=== PATIENT | female | born 1995 | race Caucasian/White ===

== ENCOUNTER 2017-07-07 00:58 | Emergency (ER) | payer OTHER ==
[2017-07-07 01:05] VITALS: BP 142/81
[2017-07-07 01:31] LABS: BILIRUBIN,URINE NEGATIVE (NEGATIVE); GLUCOSE, URINE (UA) NEGATIVE (NEGATIVE); KETONES,URINE (UA) NEGATIVE (NEGATIVE); LEUKOCYTE ESTERASE, URINE NEGATIVE (NEGATIVE); NITRITE,URINE NEGATIVE (NEGATIVE); OCCULT BLOOD,URINE NEGATIVE (NEGATIVE); PROTEIN,URINE NEGATIVE (NEGATIVE); UROBILINOGEN,URINE 0.2 (NORMAL) E.U./dL (NORMAL)
[2017-07-07 01:32] LABS: CLARITY,URINE CLEAR (CLEAR); HCG UR QUAL NEGATIVE
[2017-07-07] MEDS ORDERED: KETOROLAC 60 MG/2 ML VIAL IM STA (01:46)
[2017-07-07] MEDS ORDERED: CYCLOBENZAPRINE 10 MG TABLET PO STA (01:46)
[2017-07-07] MEDS ORDERED: DEXAMETHASONE 10 MG/ML VIAL PO STA (01:46)
[2017-07-07] MEDS ORDERED: CHERRY SYRUP 10 ML UDC PO ONE (01:58)
--- NOTE | 2017-07-07 02:04 | ED Physician Documentation ---
PD HPI BACK INJURY - Stated complaint Stated Complaint: BACK PAIN - History obtained from History obtained from: Patient, Friend - History of Present Illness Location: Both, Upper, Lower Type of injury: Other (lifting) Where injury occurred: Work Timing - onset: Today Timing - details: Abrupt onset, Still present Quality: Pain, Spasm, Sharp Worsened by: Moving, Palpating Associated symptoms: No: Weakness, Numbness, Incontinent of urine, Unable to urinate Similar symptoms before: No diagnosis Recently seen: Not recently seen - Additional information Additional information: Patient is a 22 year old female with no significant past medical history who is presenting to the emergency department for back pain. Patient states that she was helping carry a 300lb bomb when she developed a sharp pain in her back. ptient states that she has had back spasm similar to this in the past. Review of Systems Constitutional: denies: Fever, Chills Eyes: reports: Reviewed and negative Ears: reports: Reviewed and negative Nose: reports: Reviewed and negative Throat: reports: Reviewed and negative Cardiac: denies: Chest pain / pressure Respiratory: denies: Cough, Wheezing GI: denies: Nausea, Vomiting : denies: Hesitancy, Unable to Void, Incontinent Skin: denies: Lesions, Abrasion (s), Laceration (s) Musculoskeletal: reports: Back pain Neurologic: denies: Generalized weakness, Focal weakness, Numbness Immunocompromised: denies: Immunocompromised PD PAST MEDICAL HISTORY - Past Medical History Past Medical History: Yes Cardiovascular: None Respiratory: None Neuro: None Endocrine/Autoimmune: None GI: None 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 : None HEENT: None Psych: None Musculoskeletal: Chronic back pain Derm: None - Past Surgical History Past Surgical History: Yes Ortho: Other - Present Medications Home Medications: Ambulatory Orders Medication Instructions Recorded Confirmed Cyclobenzaprine [Flexeril] 10 mg PO TID PRN #10 tablet 07/07/17 - Allergies Allergies/Adverse Reactions: Allergies Allergy/AdvReac Type Severity Reaction Status Date / Time No Known Drug Allergies Allergy Verified 07/07/17 01:02 - Social History Does the pt smoke?: Yes Smoking Status: Current every day smoker Does the pt drink ETOH?: Yes Does the pt have substance abuse?: No - Immunizations Immunizations are current?: Yes - POLST Patient has POLST: No PD ED PE NORMAL - Vitals Vital signs reviewed: Yes - General General: Alert and oriented X 3, No acute distress - HEENT HEENT: Atraumatic, PERRL - Neck Neck: Supple, no meningeal sign - Cardiac Cardiac: RRR, No murmur - Respiratory Respiratory: No respiratory distress - Abdomen Abdomen: Soft, Non tender, Non distended - Derm Derm: Normal color, Warm and dry, No rash - Extremities Extremities: No deformity - Neuro Neuro: Alert and oriented X 3, No motor deficit, No sensory deficit, Normal speech Eye Opening: Spontaneous Motor: Obeys Commands Verbal: Oriented GCS Score: 15 PD ED PE EXPANDED - Back Back: Vertebral tenderness, Soft tissue tenderness (generalized tenderness to palpation throughout patients upper and lower back) Results - Vitals Vitals: Vital Signs - 24 hr 07/07/17 07/07/17 01:02 02:20 Temperature 36.7 C Heart Rate 73 70 Respiratory 18 17 Rate Blood Pressure 142/81 H O2 Saturation 99 99 Oxygen O2 Source Room air - Labs Labs: Laboratory Tests 07/07/17 01:25 Urine Color YELLOW Urine Clarity CLEAR Urine pH 6.0 Ur Specific [place] 1.020 Urine Protein NEGATIVE Urine Glucose (UA) NEGATIVE Urine Ketones NEGATIVE Urine Occult Blood NEGATIVE Urine Nitrite NEGATIVE Urine Bilirubin NEGATIVE Urine Urobilinogen 0.2 (NORMAL) Ur Leukocyte Esterase NEGATIVE Ur Microscopic Review NOT INDICATED Urine Culture Comments NOT INDICATED Urine HCG, Qual NEGATIVE PD MEDICAL DECISION MAKING - ED course Complexity details: reviewed old records, reviewed results, re-evaluated patient , considered differential, d/w patient ED course: Patient was seen and examined at bedside. patient's urine was collected and patient was not . patient was treated with toradol, decadron and flexeril. patient required no imaging or further work up at this time and was stable for discharge with outpatient follow up. Departure - Departure Disposition: Home, Self Care Clinical Impression: Back pain Condition: Good Instructions: ED Low Back Pain Injury Follow-Up: primary,care provider [Other] - Tomorrow Prescriptions: Cyclobenzaprine [Flexeril] 10 mg PO TID PRN #10 tablet PRN Reason: Spasms Comments: Your symptoms today are likely being caused by a muscle spasm. You should avoid heavy lifting until cleared by your doctor. You can take motrin or tylenol as needed for pain and flexeril for spasm. If you take the flexeril you should not take it with alcohol or other sedatives and you cannot drive or operate heavy machinery while taking it. Forms: Activity restrictions Discharge Date/Time: 07/07/17 02:15
== END 2017-07-07 02:15 | disposition home or self-care (01) ==
LOC: ED 00:58
DX: M54.9 Dorsalgia, unspecified (principal); F17.200 Nicotine dependence, unspecified, uncomplicated
CPT/HCPCS: 81003; 81025; 96372; 99283; A9270; 81001; 87086

== ENCOUNTER 2017-10-26 01:15 | Emergency (ER) | payer OTHER ==
[2017-10-26 01:21] VITALS: BP 140/81
[2017-10-26 01:33] LABS: BILIRUBIN,URINE NEGATIVE (NEGATIVE); GLUCOSE, URINE (UA) NEGATIVE (NEGATIVE); KETONES,URINE (UA) NEGATIVE (NEGATIVE); LEUKOCYTE ESTERASE, URINE NEGATIVE (NEGATIVE); NITRITE,URINE NEGATIVE (NEGATIVE); OCCULT BLOOD,URINE NEGATIVE (NEGATIVE); PH,URINE 6.5 PH (5.0-7.5); PROTEIN,URINE NEGATIVE (NEGATIVE); UROBILINOGEN,URINE 0.2 (NORMAL) E.U./dL (NORMAL)
[2017-10-26 01:36] LABS: CLARITY,URINE CLEAR (CLEAR); HCG UR QUAL NEGATIVE
[2017-10-26] MEDS ORDERED: LIDOCAINE PATCH 5% TOP STA (01:55)
[2017-10-26] MEDS ORDERED: IBUPROFEN 600 MG TABLET PO STA (01:55)
--- NOTE | 2017-10-26 01:59 | ED Physician Documentation ---
PD HPI BACK PAIN - Stated complaint Stated Complaint: LOW ABD/BACK PAIN - Chief complaint Chief Complaint: Abd Pain - History obtained from History obtained from: Patient - History of Present Illness Timing - onset: How many weeks ago (3) Timing - details: Gradual onset, Intermittant Location: Lower, Right Quality: Pain, Spasm Worsened by: Movement, Lifting Contributing factors: Lifting, Twisting Similar symptoms before: Work up / diagnostics Recently seen: Clinic - Additional information Additional information: patient is a 22 year old female who is presenting to the emergency departmetn for back pain. patient sates that pain has been going on for weeks. Patient states that it radiates down her right leg. It gets worse with palpation and movement. patient saw her base doctor who told her she had a stomach bug. 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 HEENT: None Psych: None Musculoskeletal: Chronic back pain Derm: None - Past Surgical History Past Surgical History: Yes Ortho: Other - Present Medications Home Medications: Ambulatory Orders Medication Instructions Recorded Confirmed Cyclobenzaprine [Flexeril] 10 mg PO TID PRN #10 tablet 07/07/17 Cyclobenzaprine [Flexeril] 10 mg PO TID PRN #14 tablet 10/26/17 Lidocaine Patch 5% [Lidoderm Patch] 1 each TOP DAILY #14 patch 10/26/17 - Allergies Allergies/Adverse Reactions: Allergies Allergy/AdvReac Type Severity Reaction Status Date / Time No Known Drug Allergies Allergy Verified 10/26/17 01:21 - Social History Does the pt smoke?: Yes Smoking Status: Current every day smoker Does the pt drink ETOH?: Yes Does the pt have substance abuse?: No - Immunizations Immunizations are current?: Yes - POLST Patient has POLST: No PD ED PE NORMAL - Vitals Vital signs reviewed: Yes - General General: Alert and oriented X 3, No acute distress - HEENT HEENT: Atraumatic - Cardiac Cardiac: RRR - Respiratory Respiratory: No respiratory distress - Abdomen Abdomen: Soft, Non tender, Non distended - Derm Derm: Normal color, No rash - Extremities Extremities: No deformity - Neuro Neuro: Alert and oriented X 3 Eye Opening: Spontaneous PD ED PE EXPANDED - Back Back: Soft tissue tenderness, Straight leg raise + R Results - Vitals Vitals: Vital Signs - 24 hr 10/26/17 01:19 Temperature 36.8 C Heart Rate 90 Respiratory 16 Rate Blood Pressure 140/81 H O2 Saturation 99 Oxygen O2 Source Room air - Labs Labs: Laboratory Tests 10/26/17 01:30 Urine Color YELLOW Urine Clarity CLEAR Urine pH 6.5 Ur Specific [place] 1.015 Urine Protein NEGATIVE Urine Glucose (UA) NEGATIVE Urine Ketones NEGATIVE Urine Occult Blood NEGATIVE Urine Nitrite NEGATIVE Urine Bilirubin NEGATIVE Urine Urobilinogen 0.2 (NORMAL) Ur Leukocyte Esterase NEGATIVE Ur Microscopic Review NOT INDICATED Urine Culture Comments NOT INDICATED Urine HCG, Qual NEGATIVE PD MEDICAL DECISION MAKING - ED course Complexity details: reviewed old records, reviewed results, re-evaluated patient , considered differential, d/w patient ED course: Fidel was seen and examined at bedside. patient's urine had already been collected. ptient was well appearing and in no acute distress. Patient's physical was consistent with back spasm and sciatica. Patient was treated with ibuprofen and lidoderm. patient required no futher work up and was stable for discharge with outpatient follow up. Departure - Departure Disposition: 01 Home, Self Care Clinical Impression: Sciatica Condition: Good Instructions: ED Spasm Back No Trauma, ED Sciatica Follow-Up: primary,care provider [Other] - Within 3 Days Prescriptions: Cyclobenzaprine [Flexeril] 10 mg PO TID PRN #14 tablet PRN Reason: Spasms Lidocaine Patch 5% [Lidoderm Patch] 1 each TOP DAILY #14 patch Comments: Your diagnostics today were within normal limits. Your symptoms are likely musculoskeletal in nature. You can take ibuprofen 600mg, acetaminophen 1000mg as needed for pain. You can use ice heat and the lidoderm as well. You can try the flexeril for spasm but your cannot drive or operate heavy machinery while taking it. You should follow up with your student to have your hormones checked since you have not had a menstrual cycle in a year.
== END 2017-10-26 02:17 | disposition home or self-care (01) ==
LOC: ED 01:15
DX: M54.31 Sciatica, right side (principal); M62.830 Muscle spasm of back; M54.9 Dorsalgia, unspecified; G89.29 Other chronic pain; F17.200 Nicotine dependence, unspecified, uncomplicated
CPT/HCPCS: 81003; 81025; 99283; A9270; 81001; 87086

== ENCOUNTER 2018-03-08 12:29 | Outpatient (CLI) | payer OTHER ==
--- NOTE | 2018-03-08 14:33 | MRI Report ---
Reason: LOW BACK PAIN Procedure Date: 03/08/2018 Accession Number: [id number] / [id number] Procedure: MRI - Lumbar Spine W/O CPT Code: FULL RESULT: EXAM: MRI LUMBAR SPINE WITHOUT CONTRAST EXAM DATE: 03/08/2018 01:22 PM. CLINICAL HISTORY: Low back pain. COMPARISON: None. TECHNIQUE: Multiplanar, multisequence T1-weighted and fluid-sensitive sequences of the lumbar spine from T9 to S1 without contrast. Other: None. FINDINGS: Spinal Canal: The conus terminates at T12. The conus medullaris and cauda equina are unremarkable. Alignment: Slightly exaggerated focal kyphosis centered at T11. Physiologic lumbar spine alignment. Bone Marrow: Five [id number] lumbar vertebral bodies are assumed. No acute marrow edema. Lumbar vertebral body heights are maintained. No displaced pars defect. In the lower thoracic spine, chronic degenerative disk disease is present at the T10-T11 and T11-T12 levels. Minimal disk bulges. Minimal anterior marginal spurring but no focal extrusion or significant stenosis. There is a minimal T10 and T11 vertebral body height loss especially anteriorly at T11, this is chronic. Disk Levels/Facets: T12-L1: Unremarkable. L1-L2: Unremarkable. L2-L3: Unremarkable. L3-L4: Unremarkable. L4-L5: Unremarkable. L5-S1: Unremarkable. Musculature: Normal. No edema or fatty atrophy. Other: None. IMPRESSION: 1. Unremarkable appearance of the lumbar spine. 2. Chronic degenerative disk disease without associated stenosis at T10-T11 and T11-T12. Comment: The following findings are so common in adults without low back pain that while we report their presence, they must be interpreted with caution and in the context of the clinical situation. (Reference Madalynk et al, Spine 2001) Prevalence of findings in patients without low back pain: Disk degeneration (any evidence): 92% Disk desiccation/T2 signal loss: 83% Disk height loss: 56% Disk bulge: 64% Disk protrusion: 32% Annular tear/high intensity zone: 38% RADIA
== END 2018-03-08 12:30 | disposition home or self-care (01) ==
LOC: DI 12:29
PROVIDERS: ATTEND Student in an Organized Health Care Education/Training Program
DX: M54.5 Low back pain (principal); M51.34 Other intervertebral disc degeneration, thoracic region
CPT/HCPCS: 72148

== ENCOUNTER 2020-04-10 16:30 | Emergency (ER) | payer OTHER ==
[2020-04-10 17:03] LABS: BILIRUBIN,URINE NEGATIVE (NEGATIVE); GLUCOSE, URINE (UA) NEGATIVE (NEGATIVE); KETONES,URINE (UA) NEGATIVE (NEGATIVE); LEUKOCYTE ESTERASE, URINE NEGATIVE (NEGATIVE); NITRITE,URINE NEGATIVE (NEGATIVE); OCCULT BLOOD,URINE LARGE (NEGATIVE); PROTEIN,URINE NEGATIVE (NEGATIVE); UROBILINOGEN,URINE 0.2 (NORMAL) E.U./dL (NORMAL)
[2020-04-10 17:04] LABS: CLARITY,URINE CLEAR (CLEAR)
[2020-04-10 17:06] LABS: HCG UR QUAL NEGATIVE
[2020-04-10 17:37] LABS: BACTERIA,URINE None Seen /HPF (None Seen); SQUAMOUS EPITHELIAL CELL,UR FEW Squamous (<= Few)
--- NOTE | 2020-04-10 17:45 | ED Physician Documentation ---
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 She has been back in to see CATTLE ALLEY WORKER and was diagnosed with polycystic ovarian syndrome apparently based on her blood work and she indicates that she was prescribed control pills and told not to take them until her liver functions were improved. She has reduced her drinking to 1 glass of wine per night and is expecting to be retested in 3 weeks. Today she has developed acute vaginal bleeding and left pelvic pain after intercourse last night. Review of Systems Constitutional: denies: Fever Eyes: denies: Decreased vision Ears: denies: Ear pain Nose: denies: Rhinorrhea / runny nose, Congestion Throat: denies: Sore throat Cardiac: denies: Chest pain / pressure, Palpitations Respiratory: denies: Dyspnea, Cough GI: reports: Nausea. denies: Abdominal Pain, Vomiting, Constipation, Diarrhea : reports: Vaginal bleeding, Other (pelvic pain). 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 : None HEENT: None Psych: None Musculoskeletal: Chronic back pain Derm: None Other Past Medical History: PCOS - Past Surgical History Past Surgical History: Yes Ortho: Other - Present Medications Home Medications: Ambulatory Orders Medication Instructions Recorded Confirmed Cyclobenzaprine [Flexeril] 10 mg PO TID PRN #10 tablet 07/07/17 Cyclobenzaprine [Flexeril] 10 mg PO TID PRN #14 tablet 10/26/17 Lidocaine Patch 5% [Lidoderm Patch] 1 each TOP DAILY #14 patch 10/26/17 - Allergies Allergies/Adverse Reactions: Allergies Allergy/AdvReac Type Severity Reaction Status Date / Time No Known Drug Allergies Allergy Verified 04/10/20 16:41 - Social History Does the pt smoke?: Yes Smoking Status: Current every day smoker Does the pt drink ETOH?: Yes ETOH Use: Wine Does the pt have substance abuse?: No - Immunizations Immunizations are current?: Yes - POLST Patient has POLST: No PD ED PE NORMAL - Vitals Vital signs reviewed: Yes (hypertensive ) - General General: Alert and oriented X 3, No acute distress, Well developed/nourished - HEENT HEENT: Atraumatic, PERRL, EOMI - Neck Neck: Supple, no meningeal sign, No bony TTP - Cardiac Cardiac: RRR, No murmur - Respiratory Respiratory: No respiratory distress, Clear bilaterally - Abdomen Abdomen: Normal bowel sounds, Soft, Non distended, No organomegaly, Other (mild suprapubic tenderness without garding. ) - Back Back: No CVA TTP, No spinal TTP - Derm Derm: Normal color, Warm and dry, No rash - Extremities Extremities: No deformity, No edema - Neuro Neuro: Alert and oriented X 3, b2b appointment setter 2-12 intact, No motor deficit, No sensory deficit, Normal speech Eye Opening: Spontaneous Motor: Obeys Commands Verbal: Oriented GCS Score: 15 - Psych Psych: Normal mood, Normal affect Results - Vitals Vitals: Vital Signs - 24 hr 04/10/20 04/10/20 04/10/20 16:36 17:07 19:00 Temperature 36.8 C 37 C Heart Rate 89 92 82 Respiratory 16 18 18 Rate Blood Pressure 138/86 H 152/81 H 146/99 H O2 Saturation 97 100 100 Oxygen O2 Source Room air - Labs Labs: Laboratory Tests 04/10/20 16:49 Urine Color YELLOW Urine Clarity CLEAR Urine pH 8.0 H Ur Specific [place] 1.020 Urine Protein NEGATIVE Urine Glucose (UA) NEGATIVE Urine Ketones NEGATIVE Urine Occult Blood LARGE H Urine Nitrite NEGATIVE Urine Bilirubin NEGATIVE Urine Urobilinogen 0.2 (NORMAL) Ur Leukocyte Esterase NEGATIVE Urine RBC 6-10 H Urine WBC 0-3 Ur Squamous Epith Cells FEW Squamous Urine Bacteria None Seen Ur Microscopic Review INDICATED Urine Culture Comments NOT INDICATED Urine HCG, Qual NEGATIVE PD MEDICAL DECISION MAKING - ED course Complexity details: reviewed old records, reviewed results, re-evaluated patient, considered differential, d/w patient ED course: 25-year-old female with pelvic pain and vaginal bleeding after intercourse gives history that she believes she has polycystic ovarian syndrome. She does have some pelvic pain associated with this that was postcoital and she is wanting to make certain that things are really okay. She is having some persistence of pelvic pain. Departure - Departure Disposition: 01 Home, Self Care Clinical Impression: Dysfunctional uterine bleeding Condition: Stable Instructions: ED Bleed Irregular Vaginal Follow-Up: Rik Valderrama MD [Primary Care Provider] - Discharge Date/Time: 04/10/20 19:13
[2020-04-10 19:12] VITALS: BP 146/99
--- NOTE | 2020-04-10 20:08 | Ultrasound Report ---
PROCEDURE: Pelvic w/Transvag+Doppler Comp INDICATIONS: pelvic pain, L TECHNIQUE: Real-time scanning was performed of the pelvic organs, with image documentation. Additional endovagi nal scanning was necessary due to incomplete visualization of the adnexal and endometrial structures by transabdominal scanning. COMPARISON: None. FINDINGS: Transabdominal scanning: Limited scanning through the kidneys shows no hydronephrosis. No pathologi c free abdominal or pelvic fluid. Endovaginal scanning: Uterus: Uterus is normal in size at 6.6 x 2.7 x 3.1 cm. The endometrium measures 0.4 cm in combined thickness. Ovaries: The right ovary measures 3.2 x 2.8 x 1.8 cm and the left ovary measures 3.7 x 1.8 x 1.8 cm. Multiple, greater than 12, small peripheral follicles are demonstrated bilaterally. There is patent arterial and venous flow demonstrated in the ovaries. IMPRESSION: 1. Numerous bilateral small ovarian follicles with a peripheral distribution. The findings may be ass ociated with polycystic ovarian syndrome in the appropriate clinical context. Reviewed by: David Alba MD on 04/10/2020 8:06 PM PST Approved by: David Alba MD on 04/10/2020 8:06 PM PST Station ID: [id number]
== END 2020-04-10 19:13 | disposition home or self-care (01) ==
LOC: ED 16:30
DX: N93.8 Other specified abnormal uterine and vaginal bleeding (principal); E28.2 Polycystic ovarian syndrome; N94.10 Unspecified dyspareunia; F17.200 Nicotine dependence, unspecified, uncomplicated
CPT/HCPCS: 76830; 76856; 81001; 81003; 81025; 87086; 93975; 99284

== ENCOUNTER 2021-06-24 19:11 | Emergency (ER) | payer OTHER ==
[2021-06-24 19:34] VITALS: BP 145/61
--- NOTE | 2021-06-24 21:00 | ED Physician Documentation ---
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 [place] for testing. 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 HEENT: None Psych: None Musculoskeletal: Chronic back pain Derm: None - Past Surgical History Past Surgical History: Yes Ortho: Other - Present Medications Home Medications: Ambulatory Orders Medication Instructions Recorded Confirmed Cyclobenzaprine [Flexeril] 10 mg PO TID PRN #10 tablet 07/07/17 Cyclobenzaprine [Flexeril] 10 mg PO TID PRN #14 tablet 10/26/17 Lidocaine Patch 5% [Lidoderm Patch] 1 each TOP DAILY #14 patch 10/26/17 - Allergies Allergies/Adverse Reactions: Allergies Allergy/AdvReac Type Severity Reaction Status Date / Time No Known Drug Allergies Allergy Verified 04/10/20 16:41 - Social History Does the pt smoke?: Yes Smoking Status: Current every day smoker Does the pt drink ETOH?: Yes Does the pt have substance abuse?: No - Immunizations Immunizations are current?: Yes - POLST Patient has POLST: No PD ED PE NORMAL - Vitals Vital signs reviewed: Yes - General General: Alert and oriented X 3, No acute distress - Neuro Neuro: Alert and oriented X 3, Normal speech - Psych Psych: Normal mood, Normal affect Results - Vitals Vitals: Vital Signs - 24 hr 06/24/21 19:32 Temperature 36.8 C Heart Rate 99 Respiratory 19 Rate Blood Pressure 145/61 H O2 Saturation 99 Oxygen O2 Source Room air PD MEDICAL DECISION MAKING - ED course ED course: 26-year-old woman presents for COVID testing and this is done. Departure - Departure Disposition: 01 Home, Self Care Clinical Impression: Viral syndrome Condition: Good Record reviewed to determine appropriate education?: Yes Instructions: ED Viral Syndrome Comments: You have a Covid test pending. You need to self quarantine until the result is done and negative. Do not leave your house. Do not get near anybody. The results should be done in 48 to 72 hours. We will call with a positive result, the fastest way to get a negative result for confirmation though is to go to the hospital website at [email or web address], click on the my [facility] [employer] tab and sign up for the patient portal. If any friends or family get sick and would like to have a Covid test done, but do not have signs or symptoms that would necessitate being hospitalized, there are multiple local options for Covid testing. [facility] keeps an updated list of testing and vaccination options at: [email or web address]. Forms: Activity restrictions
== END 2021-06-24 21:05 | disposition home or self-care (01) ==
LOC: ED 19:11
DX: U07.1 COVID-19 (principal); F17.200 Nicotine dependence, unspecified, uncomplicated
CPT/HCPCS: 99282; 99283

== ENCOUNTER 2024-02-11 08:09 | Outpatient (CLI) | payer OTHER ==
--- NOTE | 2024-02-11 13:26 | Ultrasound Report ---
PROCEDURE: Abdomen Limited INDICATIONS: RUQ PAIN TECHNIQUE: Real-time focused scanning was performed of the abdomen, with image documentation. COMPARISONS: None. FINDINGS: Liver: Increased liver echogenicity, with posterior attenuation, most consistent with moderate to se jada hepatic steatosis. Gallbladder: No gallstones, sludge, wall thickening or pericholecystic edema. Biliary ducts: Intrahepatic bile ducts are non-dilated. Extrahepatic bile duct caliber measures 4 m m. Normal is 6-7 mm or less in diameter, or 10 mm or less post-cholecystectomy. Pancreas: Visualized portions of the pancreas are sonographically normal. Right kidney: Normal in size and echotexture. Right kidney measures 11 cm long. No hydronephrosis or nephrolithiasis. No solid masses. No complex renal cystic lesions which require follow-up. IVC: Intrahepatic inferior vena cava is patent. Miscellaneous: No free abdominal fluid. IMPRESSION: At least moderate hepatic steatosis. Correlate with LFTs, as elevated LFTs may indicate steatohepatit is. No gallbladder pathology. Reviewed by: Myron Ha MD on 02/11/2024 1:25 PM PDT Approved by: Myron Ha MD on 02/11/2024 1:25 PM PDT Station ID: [id number]
== END 2024-02-11 08:10 | disposition home or self-care (01) ==
LOC: DI 08:09
DX: K76.0 Fatty (change of) liver, not elsewhere classified (principal)